=== PATIENT | female | born 1985 | race Caucasian/White ===

== ENCOUNTER 2023-03-26 15:24 | Emergency (ER) | payer OTHER ==
[~2023-03-26] VITALS: Ht 170.2 cm; Wt 95.3 kg
[2023-03-26 15:24] VITALS: BP 158/94; PULSE 94; RESP 18; TEMP 99.2; O2SAT 99
[2023-03-26 15:44] LABS: HEMATOCRIT(ML) 40.1 % (36.0-46.0); HEMOGLOBIN 13.2 g/dL (12.0-15.0); LYMPHOCYTES # 1.07 10^3/uL1 (1.0-4.8); LYMPHOCYTES % 25.5 % (24.0-44.0); MEAN CORP HGB 29.8 pg (26-34); MEAN CORP HGB CONCENTRATION 32.9 g/dL (33-36.5); MEAN CORP VOLUME 90.5 fL (78-100); MONOCYTES # 0.5 10^3/uL (0.3-0.8); MONOCYTES % 12.6 % (5.0-12.0); NEUTROPHIL # 2.6 10^3/uL (1.8-7.7); NEUTROPHILS % 61.9 % (41.0-85.0); PLATELET COUNT 212 10^3/uL (150-400); RED BLOOD CELL 4.43 10^6/uL (4.00-5.20); RED CELL DISTRIBUTION WIDTH 14.5 % (11.5-14.5); WHITE BLOOD CELL 4.2 10^3/uL (4.5-11.0)
[2023-03-26 15:45] LABS: +ADD MANUAL DIFF(NO CHRG) NO
[2023-03-26] MEDS ORDERED: ZOFRAN ODT ONE (15:54)
[2023-03-26] MEDS: ZOFRAN ODT SL STA (15:55)
[2023-03-26 16:06] LABS: ALANINE AMINOTRANSFERASE(ML) 34 U/L (12-78); ALBUMIN(ML) 4.1 g/dL (3.4-5.0); ALBUMIN/GLOBULIN RATIO 1.138; ALKALINE PHOSPHATASE 67 U/L (50-136); ANION GAP 16.2; ASPARTATE AMINO TRANSFERASE 18 U/L (0-35); CALCIUM 9.2 mg/dL (8.4-10.5); CARBON DIOXIDE 22.7 mmol/L (20.0-32); CREATININE SERUM 0.75 mg/dL (0.59-1.40); EST GFR, NON-AA 87.4 (>/=60); GLUCOSE 100 mg/dL (74-106); POTASSIUM 2.9 mmol/L (3.6-5.2); SODIUM 135 mmol/L (132-145)
[2023-03-26 16:07] LABS: TROPONIN I HIGH SENSITIVITY < 4 ng/L (0-50)
[2023-03-26] MEDS ORDERED: KLOR-CON 10 PO ONE (16:18)
[2023-03-26] MEDS: KLOR-CON 10 PO STA (16:20)
[2023-03-26] MEDS ORDERED: PROTONIX PO ONE (16:25)
[2023-03-26] MEDS: PROTONIX PO STA (16:27)
== END 2023-03-26 16:28 | disposition home or self-care (01) ==
LOC: ER 15:24
DX: A08.4 Viral intestinal infection, unspecified (principal); Z98.51 Tubal ligation status
CPT/HCPCS: 99285; 71045; 80053; 85025; 36415; 84484; 84703; 93005; J3490